=== PATIENT | female | born 1990 | race Caucasian/White ===

== ENCOUNTER → 2020-12-08 | Outpatient (CLI) | payer OTHER ==
[~2020-12-08] MED LIST: BIRTH CONTROL PO; DOXY100T PO; HYDR-1067 PO; IBUP-1902 PO; POLY17PO5 PO
[2020-12-08 12:02] LABS: BASOPHILS % (AUTO) 1 % (0-1); EOSINOPHILS % (AUTO) 4 % (1-7); LYMPHOCYTES % (AUTO) 42 % (22-44); MEAN CORPUSCULAR HEMOGLOBIN 31.8 pg (27.0-34.8); MEAN PLATELET VOLUME 6.4 fL (7.4-10.4); MONOCYTES % (AUTO) 8 % (2-9); NEUTROPHILS % (AUTO) 46 % (42-75); PLATELET COUNT 348 x10^3/uL (130-400); RED BLOOD COUNT 4.31 x10^6/uL (3.82-5.3); RED CELL DISTRIBUTION WIDTH 13.1 % (9.6-15.2)
[2020-12-08 12:06] LABS: MD NO
[2020-12-08 12:10] LABS: CREATININE 0.87 mg/dL (0.55-1.02)
[2020-12-08 12:11] LABS: PROTHROMBIN TIME 10.7 Seconds (9.6-11.5)
[2020-12-08 12:33] LABS: ANION GAP 3 mmol/L (5-15); CHLORIDE 109 mmol/L (98-107)
[2020-12-08 12:43] LABS: MICROSCOPIC NOT IND
== END | disposition home or self-care (01) ==
LOC: LAB 11:18
PROVIDERS: ATTEND Neurological Surgery
DX: Z01.810 Encounter for preprocedural cardiovascular examination (principal); Z01.812 Encounter for preprocedural laboratory examination; Z01.811 Encounter for preprocedural respiratory examination; M50.122 Cervical disc disorder at C5-C6 level with radiculopathy; R79.1 Abnormal coagulation profile; R94.31 Abnormal electrocardiogram [ECG] [EKG]; R82.90 Unspecified abnormal findings in urine
CPT/HCPCS: 36415; 71046; 72050; 80048; 81003; 85025; 85610; 85730; 93005